=== PATIENT | female | born 1950 | race Caucasian/White ===

== ENCOUNTER 2018-01-21 13:41 | Emergency (ER) | payer MEDICARE, OTHER ==
[2018-01-21 14:48] LABS: BASOPHILS # (AUTO) 0.1 10^3/uL (0.0-0.1); BASOPHILS % (AUTO) 0.6 %; EOSINOPHILS # (AUTO) 0.3 10^3/uL (0.0-0.7); EOSINOPHILS % (AUTO) 2.5 %; HGB - HEMOGLOBIN 13.5 g/dL (12.0-16.0); LYMPHOCYTES # (AUTO) 1.3 10^3/uL (1.5-3.5); LYMPHOCYTES % (AUTO) 10.5 %; MEAN CORPUSCULAR HEMOGLOBIN 29.2 pg (27.0-31.0); MEAN CORPUSCULAR HGB CONC 33.3 g/dL (32.0-36.0); MEAN CORPUSCULAR VOLUME 87.9 fL (81.0-99.0); MEAN PLATELET VOLUME 7.7 fL (7.9-10.8); MONOCYTES # (AUTO) 0.9 10^3/uL (0.0-1.0); MONOCYTES % (AUTO) 7.5 %; NEUTROPHILS # (AUTO) 9.4 10^3/uL (1.5-6.6); NEUTROPHILS % (AUTO) 78.9 %; PLT - PLATELET COUNT 287 10^3/uL (130-450); RED BLOOD COUNT 4.63 10^6/uL (4.20-5.40); RED CELL DISTRIBUTION WIDTH 15.1 % (12.0-15.0)
--- NOTE | 2018-01-21 14:53 | XRAY Report ---
Procedure Date: 01/21/2018 Accession Number: [id number] / [id number] Procedure: XR - Chest 2 View X-Ray CPT Code: 93131 FULL RESULT: EXAM: CHEST RADIOGRAPHY EXAM DATE: 01/21/2018 02:48 PM. CLINICAL HISTORY: Cough. COMPARISON: None. TECHNIQUE: 2 views. FINDINGS: Lungs/Pleura: No focal opacities evident. No pleural effusion. No pneumothorax. Normal volumes. Mediastinum: Heart and mediastinal contours are unremarkable. Other: None. IMPRESSION: No acute cardiopulmonary abnormality. RADIA
[2018-01-21 14:58] LABS: ALBUMIN/GLOBULIN RATIO 1.3 (1.0-2.2); BILIRUBIN,TOTAL 0.6 mg/dL (0.2-1.0); CREATININE 0.9 mg/dL (0.4-1.0); TOTAL PROTEIN 7.1 g/dL (6.7-8.2)
[2018-01-21] MEDS ORDERED: IPRATROPIUM/ALBUTEROL 3 ML NEB INH STA (15:32)
--- NOTE | 2018-01-21 15:33 | ED Physician Documentation ---
PD HPI URI - Stated complaint Stated Complaint: COUGH/SYNCOPE/SOA - Chief complaint Chief Complaint: Resp - History obtained from History obtained from: Patient, Family (daughter) - History of Present Illness Timing duration: Days (2) Timing details: Still present Associated symptoms: Productive cough Contributing factors: COPD / asthma Similar symptoms before: Has not had sx before - Additional information Additional information: The patient is a 67-year-old female with history of COPD, who presents with cough that has been increasing over the past 2 days. Her cough has been productive of sputum today, and her daughter has noticed wheezing. After a coughing episode this morning she had a brief near syncopal episode, described by her daughter as failure to respond to her questions. She denies any associated chest pain or shortness of breath. She denies fever, nausea or vomiting. She quit smoking cigarettes 2 years ago. Review of Systems Constitutional: denies: Fever Nose: denies: Congestion Throat: denies: Sore throat Cardiac: denies: Chest pain / pressure Respiratory: reports: Dyspnea (slight), Cough, Wheezing GI: denies: Abdominal Pain, Nausea, Vomiting : denies: Dysuria Skin: denies: Rash Musculoskeletal: denies: Neck pain, Back pain, Extremity swelling Neurologic: denies: Focal weakness, Numbness, Headache PD PAST MEDICAL HISTORY - Past Medical History Cardiovascular: Hypertension, High cholesterol Respiratory: COPD Neuro: None Endocrine/Autoimmune: Type 2 diabetes GI: None, Diverticulitis SCHOOL COOK: None : None HEENT: None Psych: None Musculoskeletal: None Derm: None - Past Surgical History Past Surgical History: Yes General: Cholecystectomy, Appendectomy Ortho: Hip replacement /SCHOOL COOK: section - Present Medications Home Medications: Ambulatory Orders Medication Instructions Recorded Confirmed predniSONE [Prednisone] 30 mg PO DAILY #15 tablet 01/21/18 - Allergies Allergies/Adverse Reactions: Allergies Allergy/AdvReac Type Severity Reaction Status Date / Time amoxicillin Allergy Rash Verified 01/21/18 14:16 fluoxetine Allergy Itching Verified 01/21/18 14:16 piperacillin [From Zosyn] Allergy Anaphylaxis Verified 01/21/18 14:16 tazobactam [From Zosyn] Allergy Anaphylaxis Verified 01/21/18 14:16 - Social History Does the pt smoke?: No Smoking Status: Former smoker Does the pt drink ETOH?: Yes Does the pt have substance abuse?: No - Immunizations Immunizations are current?: Yes - POLST Patient has POLST: No PD ED PE NORMAL - Vitals Vital signs reviewed: Yes (Borderline systolic hypertension initially.) - General General: Alert and oriented X 3, Well developed/nourished - HEENT HEENT: Atraumatic, Moist mucous membranes, Pharynx benign - Neck Neck: No adenopathy, No JVD - Cardiac Cardiac: RRR - Respiratory Respiratory: Other (Course sounding cough; faint wheezes bilaterally.) - Abdomen Abdomen: Soft, Non tender - Back Back: No CVA TTP - Derm Derm: No rash - Extremities Extremities: No edema, No calf tenderness / cord - Neuro Neuro: Alert and oriented X 3, No motor deficit, Normal speech Results - Vitals Vitals: Oxygen O2 Source Room air - EKG (time done) 14:00 Rate: Rate (enter#) (81) Rhythm: NSR [place]: Normal Intervals: Normal [place] QRS: Normal Ischemia: ST depression (Minimal ST depression in inferior leads III and aVF.) Computer interpretation: Agree with computer - Labs Labs: Laboratory Tests 01/21/18 01/21/18 14:35 14:35 WBC 12.0 H RBC 4.63 Hgb 13.5 Hct 40.7 MCV 87.9 MCH 29.2 MCHC 33.3 RDW 15.1 H Plt Count 287 MPV 7.7 L Neut # (Auto) 9.4 H Lymph # (Auto) 1.3 L [place] # (Auto) 0.9 Eos # (Auto) 0.3 Baso # (Auto) 0.1 Absolute Nucleated RBC 0.01 Nucleated RBC % 0.1 Sodium 137 Potassium 3.9 Chloride 102 Carbon Dioxide 26 Anion Gap 9.0 BUN 25 H Creatinine 0.9 Estimated GFR (MDRD) 62 L Glucose 151 H Calcium 10.0 Total Bilirubin 0.6 AST 25 ALT 25 Alkaline Phosphatase 103 Total Protein 7.1 Albumin 4.0 Globulin 3.1 Albumin/Globulin Ratio 1.3 Lipase 35 - Rads (name of study) cxr Radiology: Prelim report reviewed, EMP read contemporaneously, See rad report ( No acute cardiopulmonary abnormality.) PD MEDICAL DECISION MAKING - ED course Complexity details: reviewed results, re-evaluated patient, considered differential, d/w patient, d/w family ED course: The patient's presentation is most consistent with acute bronchitis, with exacerbation of COPD. Chest x-ray reveals no evidence of pneumonia. Her presentation does not suggest CHF or pulmonary embolus. The near syncopal episode was most likely induced by vagal response from coughing spell. I doubt acute cardiac etiology for the brief episode. Treatment in the emergency department included administration of DuoNeb nebulizer, which improved her air movement. I discussed with her and her daughter the lack of clinical indication for antibiotic therapy. She is being discharged with prescription for 5 day course of prednisone. I discussed with her the expected course of illness, symptomatic treatment and outpatient follow- up, as well as potentially worrisome signs or symptoms that should prompt reevaluation in the emergency department. - Sepsis Event Vital Signs: Oxygen O2 Source Room air Departure - Departure Disposition: 01 Home, Self Care Clinical Impression: Bronchitis Condition: Stable Instructions: ED Bronchitis Asthmatic Follow-Up: Dinorah Sher MD [Primary Care Provider] - Prescriptions: predniSONE [Prednisone] 30 mg PO DAILY #15 tablet Comments: Use the albuterol inhaler as frequently as every 4 hours if needed for wheezing and cough. Use the spacer device with the inhaler. Take prednisone once daily for 5 days as prescribed. Follow up with your primary physician within 1-2 weeks. Call to schedule appointment. Return to the emergency department if you develop increasing difficulty breathing, or otherwise worsening Discharge Date/Time: 01/21/18 16:47
[2018-01-21 16:44] VITALS: BP 137/70
== END 2018-01-21 16:47 | disposition home or self-care (01) ==
LOC: ED 13:41
DX: J44.9 Chronic obstructive pulmonary disease, unspecified (principal); I10 Essential (primary) hypertension; E78.00 Pure hypercholesterolemia, unspecified; E11.9 Type 2 diabetes mellitus without complications; Z96.649 Presence of unspecified artificial hip joint; Z87.891 Personal history of nicotine dependence
CPT/HCPCS: 36415; 71046; 80053; 83690; 85025; 93005; 94640; 94664; 99283